=== PATIENT | female | born 1965 | race Caucasian/White ===

== ENCOUNTER 2018-01-10 11:41 | Emergency (ER) | payer MEDICARE, OTHER ==
[2018-01-10 11:58] LABS: BASOPHILS % (AUTO) 2 % (0-3); EOSINOPHILS % (AUTO) 2 % (0-9); HEMATOCRIT 43 % (35-47); HEMOGLOBIN 14.6 gm/dl (12.0-15.5); LYMPHOCYTES % (AUTO) 41.4 % (10-50); MEAN CORPUSCULAR HEMOGLOBIN 29.7 pg (27.0-32.0); MEAN CORPUSCULAR HGB CONC 33.9 gm/dl (32.0-36.0); MEAN CORPUSCULAR VOLUME 88 fL (81-99); MONOCYTES % (AUTO) 5.8 % (0-12); NEUTROPHILS % (AUTO) 48.5 % (37-80)
[2018-01-10] MEDS: SODIUM CHLORIDE 0.9% FLUSH 10 ML SOL IV PRN ×5 (12:00→16:52)
[2018-01-10 12:11] LABS: ALBUMIN 3.6 gm/dl (3.4-5.0); ALKALINE PHOSPHATASE 78 IU/L (46-116); ALT 33 IU/L (14-63); AST 31 IU/L (15-37); BILIRUBIN,TOTAL 0.4 mg/dl (0.2-1.0); BLOOD UREA NITROGEN 13 mg/dl (7-18); CALCIUM 8.7 mg/dl (8.5-10.1); CARBON DIOXIDE 21.1 mEq/L (21-32); CHLORIDE 101 mMol/L (98-107); CREATININE 0.98 mg/dl (0.60-1.00); GLOM FILT RATE 60 mL/min (>60); GLUCOSE 78 mg/dl (74-106); POTASSIUM 4.1 mMol/L (3.5-5.1); SODIUM 136 mMol/L (136-145); TOTAL PROTEIN 8.3 gm/dl (6.4-8.2)
[2018-01-10 12:12] LABS: TROP I < 0.017 ng/ml (0.000-0.056)
[2018-01-10 12:37] LABS: APPEARANCE,URINE Clear; BILIRUBIN,URINE NEGATIVE (NEGATIVE); COLOR,URINE Yellow; GLUCOSE, URINE (UA) NEGATIVE (NEGATIVE); KETONES,URINE NEGATIVE (NEGATIVE); LEUKOCYTE ESTERASE ,URINE TRACE (NEGATIVE); NITRATE,URINE NEGATIVE (NEGATIVE); OCCULT BLOOD,URINE TRACE LYSED (NEG-TRACE); UROBILINOGEN,URINE 0.2 (0.2-1.0 EU)
[2018-01-10] MEDS ORDERED: ONDANSETRON 4 MG ODT ONE (12:40)
[2018-01-10] MEDS ORDERED: ONDANSETRON 4 MG ODT BU PRN (12:40)
[2018-01-10 12:51] LABS: BACTERIA RARE (< 1+); CRYSTALS NEGATIVE (0-3 AVE/HPF); RBC,URINE NEG (0-3AV/HPF); WBC,URINE 0-1 (0-5AV/HPF)
[2018-01-10] MEDS ORDERED: TDAP VACCINE 0.5 ML SUS IM ONE ×2 (12:56→14:38)
[2018-01-10] MEDS ORDERED: ACETAMINOPHEN 325 MG PO ONE (13:24)
[2018-01-10] MEDS ORDERED: ACETAMINOPHEN 500 MG 500 MG TAB PO ONE (13:25)
[2018-01-10] MEDS ORDERED: ACETAMINOPHEN 500 MG 500 MG TAB ONE (13:35)
[2018-01-10] MEDS ORDERED: SODIUM CHLORIDE 0.9% 1000 ML SOL IV SCH (13:45)
[2018-01-10] MEDS ORDERED: PROCHLORPERAZINE MALEATE 5 MG TAB PO ONE (14:29)
[2018-01-10] MEDS ORDERED: PROCHLORPERAZINE MALEATE 5 MG TAB ONE (14:37)
[2018-01-10] MEDS ORDERED: MORPHINE SULFATE 10 MG/ML SOL IV ONE (15:22)
[2018-01-10] MEDS ORDERED: MORPHINE SULFATE 10 MG/ML SOL ONE (15:23)
[2018-01-10] MEDS ORDERED: KETOROLAC TROMETHAMINE 30 MG/ML SOL IV ONE (16:39)
[2018-01-10] MEDS ORDERED: KETOROLAC TROMETHAMINE 30 MG/ML SOL ONE (16:49)
[2018-01-10 17:04] VITALS: BP 134/92; PULSE 71; RESP 16; TEMP 99.2; O2SAT 97
== END 2018-01-10 17:33 | disposition home or self-care (01) | DRG 914 ==
LOC: ED 11:41
DX: S09.90XA Unspecified injury of head, initial encounter (principal); G62.9 Polyneuropathy, unspecified; S22.42XA Multiple fractures of ribs, left side, initial encounter for closed fracture; E86.0 Dehydration; R55 Syncope and collapse; F41.9 Anxiety disorder, unspecified; G89.29 Other chronic pain; W18.30XA Fall on same level, unspecified, initial encounter; M79.7 Fibromyalgia; M21.371 Foot drop, right foot; R40.2362 Coma scale, best motor response, obeys commands, at arrival to emergency department; R40.2142 Coma scale, eyes open, spontaneous, at arrival to emergency department; R40.2252 Coma scale, best verbal response, oriented, at arrival to emergency department
CPT/HCPCS: 70450; 70544; 70553; 71045; 71100; 71101; 72125; 80053; 81001; 84484; 85025; 87088; 90471; 90715; 93005; 96365; 96374; 96375; 99285; 99291; 99292; J1885; J2270; Q0164; A9270-GY